=== PATIENT | female | born 1995 | race Caucasian/White ===

== ENCOUNTER 2017-08-28 19:22 | Emergency (ER) | payer OTHER ==
[~2017-08-28] VITALS: Ht 160 cm; Wt 104.3 kg
[~2017-08-28 19:22] MED LIST: BENTYL10 M1 PO; BUSPIRONE HCL30 MG PO; CHERATUSSIN AC118 M1 PO; CIPRO 500MG TA500 MG PO; CLONAZEPAM1 MG PO; DURICEF500 MG PO; MELOXICAM15 M1 PO; MIRENA1 EACH; MIRENA52 MG; PERCOCET 325 MG1 TA2 PO; SERTRALINE HYDR50 MG PO; TESSALON PERLE100 M1 PO; VENTOLIN HFA18 GM INH; ZOFRAN ODT4 M1 SL
[2017-08-28 20:08] LABS: ABSOLUTE BASOPHIL COUNT 0 /CUMM (0.0-0.2); ABSOLUTE EOSINOPHIL COUNT 0.1 /CUMM (0.0-0.7); ABSOLUTE GRANULOCYTE CT 7.3 /CUMM (1.4-6.5); ABSOLUTE LYMPH COUNT 2.2 /CUMM (1.2-3.4); ABSOLUTE MONOCYTE COUNT 0.8 /CUMM (0.10-0.60); BASOPHIL % 0.4 % (0.0-2.0); GRANULOCYTE % 69.5 % (42.2-75.2); HEMATOCRIT 40.6 % (37-47); MEAN CORPUSCULAR HGB 26.6 PG (27.0-31.0); MEAN CORPUSCULAR HGB CONC 32.6 G/DL (33.0-37.0); MEAN CORPUSCULAR VOLUME 81.8 FL (81.0-99.0); MEAN PLATELET VOLUME 8.3 FL (7.4-10.4); PLATELET COUNT 282 /CUMM (130-400); RED BLOOD CELL CT 4.97 /CUMM (4.20-5.40); WHITE BLOOD CELL COUNT 10.4 /CUMM (4.8-10.8)
--- NOTE | 2017-08-28 21:10 | ED GI/GU/ABDOMINAL COMPLAINT ---
History of Present Illness General Chief Complaint: Female Urogenital Problems Stated Complaint: SENT BY OBGYN Source: patient Exam Limitations: no limitations Vital Signs & Intake/Output Vital Signs & Intake/Output Vital Signs Date Time Temp Pulse Resp B/P B/P Pulse O2 O2 Flow FiO2 Mean Ox Delivery Rate 08/28 1938 98.9 88 18 133/77 97 Room Air Allergies Coded Allergies: NO KNOWN ALLERGIES (07/30/15) Reconcile Medications Albuterol Sulfate (Ventolin Hfa) 90 MCG HFA.AER.AD 2 PUF INH Q4-6 PRN PRN SHORTNESS OF BREATH Benzonatate (Tessalon Perle) 100 MG CAPSULE 1 CAP PO TID PRN COUGH Codeine Phosphate/Guaifenesi (Cheratussin AC Syrup) 10 MG-100 MG/5 ML LIQUID 10 ML PO QPM PRN COUGH Dicyclomine Hydrochloride (Bentyl) 10 MG CAPSULE 1 CAP PO TID PRN abdominal pain Levonorgestrel (Mirena) 20 MCG/24 HOUR (5 YEARS) IUD CONTROL (Reported) Meloxicam 15 MG TABLET 1 TAB PO DAILY PRN PAIN Ondansetron (Zofran Odt) 4 MG TAB.RAPDIS 1 TAB SL TID PRN nausea Triage Note: PT SENT TO ER BY PROP[employer] DR SHEARER FOR VAGINAL BLEEDING FOR THE LAST 3 HRS. HAS MERINA IUD. HAS NOT HAD BLEEDING FOR THE LAST 4 YEARS UNTIL TODAY. STATES HAS GONE THROUGH 3-4 PADS SINCE BLEEDING STARTED. DENIES SOB, DIZZINESS. Triage Nurses Notes Reviewed? yes ? N Is pt currently ? No Onset: Gradual Duration: hour(s): Timing: single episode today Quality/Severity: cramping, mild Location: suprapubic HPI: 21yo female sent in by [employer] for vaginal bleeding beginning today. Patient has Mirena IUD for the past 4 years. She initially had some vaginal bleeding 4 years ago however has had no vaginal bleeding or menstruation for over 3 years. Patient states that today she went to the bathroom and noticed blood when she wiped. After that she began soaking through pads. Patient states she called her [employer]ERTY [employer]NAGER who will follow-up with her in the office however told her to report to the emergency department if symptoms worsen or she feels uncomfortable. Patient also feeling mild suprapubic cramping. Patient is sexually active, monogamous with one partner for many years, low suspicion for STIs. She denies vaginal discharge, dysuria, diarrhea, constipation, nausea, vomiting. Past History Travel History Traveled to [place] past 21 day No Medical History Any Pertinent Medical History? see below for history Neurological: NONE EENT: NONE Cardiovascular: NONE Respiratory: NONE Gastrointestinal: NONE Hepatic: NONE Renal: nephrolithiasis Musculoskeletal: NONE Psychiatric: anxiety, depression Endocrine: NONE Blood Disorders: NONE Cancer(s): NONE [employer]/Reproductive: NONE Surgical History Surgical History: cholecystectomy, Psychosocial History Who do you live with Family What is your primary language Belizean Tobacco Use: Never used ETOH Use: occasional use Illicit Drug Use: denies illicit drug use Family History Hx Contributory? No Review of Systems Review of Systems Constitutional: Reports: no symptoms. EENTM: Reports: no symptoms. Respiratory: Reports: no symptoms. Cardiovascular: Reports: no symptoms. GI: Reports: see HPI. Genitourinary: Reports: see HPI. Musculoskeletal: Reports: no symptoms. Skin: Reports: no symptoms. Neurological/Psychological: Reports: no symptoms. Hematologic/Endocrine: Reports: no symptoms. Immunologic/Allergic: Reports: no symptoms. All Other Systems: Reviewed and Negative Physical Exam Physical Exam General Appearance: well developed/nourished, no apparent distress, alert, awake Head: atraumatic, normal appearance Eyes: Bilateral: normal appearance. Ears, Nose, Throat, Mouth: hearing grossly normal Neck: normal inspection, supple, full range of motion Respiratory: normal breath sounds, no respiratory distress, lungs clear Cardiovascular: regular rate/rhythm Gastrointestinal: normal bowel sounds, soft, non-tender, no organomegaly Back: normal inspection, normal range of motion, no CVA tenderness Extremities: normal range of motion Neurologic/Psych: awake, alert, oriented x 3 Skin: intact, normal color, warm/dry Core Measures ACS in differential dx? No Sepsis Present: No Sepsis Focused Exam Completed? No Progress Differential Diagnosis: appendicitis, bowel obstruction, ectopic , endometritis, intrauterine , PID/cervicitis, threatened AB, UTI/pyelo, IUD dysfunction, menstruation, DUB Plan of Care: Orders Procedure Date/time Status HUMAN BETA HCG SCREEN 08/28 1942 Complete COMPREHENSIVE METABOLIC PANEL 08/28 1942 Complete CBC WITHOUT DIFFERENTIAL 08/28 1942 Complete Laboratory Tests 08/28/171952: Anion Gap 15, Estimated GFR > 60, BUN/Creatinine Ratio 18.9, Glucose 84, Calcium 9.3, Total Bilirubin 0.1 L, AST 25, ALT 50, Alkaline Phosphatase 79, Total Protein 7.2, Albumin 4.3, Globulin 2.9, Albumin/Globulin Ratio 1.5, Total Beta HCG NEGATIVE, CBC w Diff NO MAN DIFF REQ, RBC 4.97, MCV 81.8, MCH 26.6 L, MCHC 32.6 L, RDW 15.0 H, MPV 8.3, Gran % 69.5, Lymphocytes % 21.0, Monocytes % 8.1, Eosinophils % 1.0, Basophils % 0.4, Absolute Granulocytes 7.3 H, Absolute Lymphocytes 2.2, Absolute Monocytes 0.8 H, Absolute Eosinophils 0.1, Absolute Basophils 0 Patient with no right lower quadrant tenderness, no leukocytosis, patient afebrile, low suspicion for appendicitis at this time. Ultrasound shows blood and cervix however no other acute abnormality. Patient with stable H/H. patient is sitting comfortably in stretcher, no acute distress, nontoxic appearing. Patient will follow-up with her [employer]NAGER this week. She will take ibuprofen or Tylenol as needed for cramping. She will return with any worsening symptoms or other concerns. The patient agrees with the plan of care. Diagnostic Imaging: Viewed by Me: Ultrasound. Discussed w/RAD: Ultrasound. Radiology Impression: PATIENT: PATITO DELUNA PRESENT AGE: 21 PATIENT ACCOUNT NO: [id number] : 94 LOCATION: [facility] ORDERING PHYSICIAN: Slava IRIZARRY SERVICE DATE: 08/28/17 EXAM TYPE: US - US- TRANSVAGINAL EXAMINATION: US TRANSVAGINAL CLINICAL INFORMATION: Heavy vaginal bleeding abdominal pain. COMPARISON: Pelvic ultrasound July 2013. CT abdomen and pelvis December 2016 TECHNIQUE: Grayscale color flow and Doppler imaging of the pelvis was performed utilizing transabdominal and transvaginal technique FINDINGS: Uterus 6.9 x 3.3 x 3.4 cm Endometrial thickness 0.2 cm. Total uterine volume 40.5 cm. IUD visualized Trace amount of fluid within the cervix No uterine masses. Right ovary 3.3 x 2.1 x 2.1 cm for volume of 7.6 mL. No masses Left ovary: 2.6 x 2.3 x 2.3 cm for volume of 7.2 mL. No masses IMPRESSION: No definite significant abnormality. Small amount of fluid within the cervix may reflect blood\E\hemorrhage given the patient's history. DICTATED BY: Jorge Stevens MD DATE/TIME DICTATED:08/28/172133 BANKRUPTCY JUDGE:MARLENY DATE/ TIME TRANSCRIBED:08/28/172133 CONFIDENTIAL, DO NOT COPY WITHOUT APPROPRIATE AUTHORIZATION. <Electronically signed in Other Vendor System> SIGNED BY: Jorge Stevens MD 08/28/172141 Initial ED EKG: none Departure Departure Disposition: HOME OR SELF CARE Condition: Stable Clinical Impression Primary Impression: Vaginal bleeding Referrals: Valentina BARKER,Belem Agrawal (PCP/Family) Additional Instructions: Take ibuprofen as prescribed as needed for uterine cramping. Follow-up with your [employer] S[employer]NAGER this week. For any worsening symptoms or other concerns please return to the emergency department. Please note that there might be incidental findings in your evaluation that are unrelated to the current emergency department visit. Please notify your primary care doctor about this emergency department visit in order to obtain and review all of the testing performed so that these incidental findings can be monitored as needed. If you had an x-ray performed, please understand that some fractures may not be seen on the initial set of x-rays. If your symptoms persist you might need a repeat set of x-rays to check for such a fracture. If you had a laceration evaluated, please understand that foreign bodies such as glass or wood may not be visible to the naked eye or on plain x-rays. If the wound becomes red, swollen, increasingly more painful or if there is any drainage from the wound, please have it reevaluated by a physician for the possibility of a retained foreign body. If you're unable to follow up as outlined in the discharge instructions please return to the emergency department. Thank you for choosing the [facility] Emergency Department for your care. It was a pleasure to serve you today. Departure Forms: Customer Survey General Discharge Information
--- NOTE | 2017-08-28 21:42 | ULTRASOUND REPORT ---
EXAMINATION: US TRANSVAGINAL CLINICAL INFORMATION: Heavy vaginal bleeding abdominal pain. COMPARISON: Pelvic ultrasound July 2013. CT abdomen and pelvis December 2016 TECHNIQUE: Grayscale color flow and Doppler imaging of the pelvis was performed utilizing transabdominal and transvaginal technique FINDINGS: Uterus 6.9 x 3.3 x 3.4 cm Endometrial thickness 0.2 cm. Total uterine volume 40.5 cm. IUD visualized Trace amount of fluid within the cervix No uterine masses. Right ovary 3.3 x 2.1 x 2.1 cm for volume of 7.6 mL. No masses Left ovary: 2.6 x 2.3 x 2.3 cm for volume of 7.2 mL. No masses IMPRESSION: No definite significant abnormality. Small amount of fluid within the cervix may reflect blood\E\hemorrhage given the patient's history.
[2017-08-28 22:35] VITALS: BP 129/78
== END 2017-08-28 22:51 ==
LOC: ERH 19:22
PROVIDERS: Emergency Medicine
DX: N93.9 Abnormal uterine and vaginal bleeding, unspecified (principal)